=== PATIENT | female | born 1990 ===

== ENCOUNTER 2021-02-17 14:40 | Emergency (ER) | payer OTHER ==
[~2021-02-17] VITALS: Ht 152.4 cm; Wt 61.7 kg
[2021-02-17] MEDS ORDERED: BACTRIM DS TAB1 EACH PO (21:45)
== END 2021-02-17 23:52 | disposition home or self-care (01) ==
LOC: ER 14:40
DX: T81.31XA Disruption of external operation (surgical) wound, not elsewhere classified, initial encounter (principal); Z11.52 Encounter for screening for COVID-19